=== PATIENT | male | born 2000 | race Hispanic/Latino ===

== ENCOUNTER 2022-07-05 13:21 | Observation (INO) | payer OTHER ==
[~2022-07-05] VITALS: Ht 172.7 cm; Wt 73.9 kg
[2022-07-05 14:00] LABS: BASOPHILS % (AUTO) 0.3 % (0.0-5.0); EOSINOPHILS % (AUTO) 0.3 % (0.0-8.0); HEMATOCRIT 42.1 % (42-54); LYMPHOCYTES % (AUTO) 9.3 % (21.0-51.0); MEAN CORPUSCULAR HEMOGLOBIN 26.9 pg (27.0-33.0); MEAN CORPUSCULAR HGB CONC 33.7 g/dL (32.0-36.0); MEAN CORPUSCULAR VOLUME 79.7 fL (80-100); MONOCYTES % (AUTO) 8.9 % (3.0-13.0); NEUTROPHILS % (AUTO) 80.7 % (40.0-77.0); PLATELET COUNT (AUTO) 226 K/uL (130-400); RED BLOOD CELL COUNT(AUTO) 5.28 MIL/uL (4.50-6.20); RED CELL DISTRIBUTION WIDTH 13.1 % (11.0-15.5); WHITE BLOOD COUNT (AUTO) 7.4 K/uL (4.8-10.8)
[2022-07-05 14:11] LABS: CREATININE 1.1 mg/dL (0.5-1.5); POTASSIUM 3.9 mmol/L (3.5-5.1)
[2022-07-05 14:12] LABS: INR 0.94 (0.85-1.15); PROTHROMBIN TIME 10.3 SEC (9.6-11.6)
[2022-07-05 14:13] LABS: PARTIAL THROMBOPLASTIN TIME 30.5 SEC (26.3-35.5)
[2022-07-05 14:17] LABS: ALBUMIN 4.4 g/dL (3.5-5.0); APPEARANCE,URINE CLEAR (CLEAR); BILIRUBIN,URINE NEGATIVE (NEGATIVE); COLOR,URINE COLORLESS (YELLOW); GLUCOSE, URINE (UA) NEGATIVE (NEGATIVE); KETONES,URINE NEGATIVE (NEGATIVE); LEUKOCYTE ESTERASE ,URINE NEGATIVE Leu/uL (NEGATIVE); NITRATE,URINE NEGATIVE (NEGATIVE); OCCULT BLOOD,URINE NEGATIVE (NEGATIVE); PROTEIN,URINE NEGATIVE (NEGATIVE); UROBILINOGEN,URINE 0.2 mg/dL (0.2-1.0)
[2022-07-05] MEDS ORDERED: ONDANSETRON 4MG INJ IVP ONE (14:30)
[2022-07-05] MEDS ORDERED: MORPHINE 2 MG SYG IVP ONE (14:30)
[2022-07-05] MEDS ORDERED: 0.9%NACL 1000ML 1,000 ML IV SCH (14:30)
[2022-07-05] MEDS ORDERED: ONDANSETRON 4MG INJ IVP PRN (15:30)
[2022-07-05] MEDS ORDERED: ACETAMINOPHEN 500 MG TABLET PO PRN (16:00)
[2022-07-05 16:15] LABS: AMPHET/METH SCREEN,URINE NEGATIVE (NEGATIVE); BARBITURATE SCREEN, URINE NEGATIVE (NEGATIVE); BENZODIAZEPINES SCREEN,URINE NEGATIVE (NEGATIVE); CANNABINOID SCREEN,URINE NEGATIVE (NEGATIVE); COCAINE SCREEN,URINE NEGATIVE (NEGATIVE); OPIATE SCREEN,URINE NEGATIVE (NEGATIVE); PHENCYCLIDINE SCREEN,URINE NEGATIVE (NEGATIVE)
[2022-07-05] MEDS ORDERED: PEG 3350/NA SULF,BICARB,CL/KCL 4000 ML SOLN PO ONE (16:30)
[2022-07-05] MEDS: ZOSYN 3.375GM +NS 50ML IV SCH ×2 (16:34→22:41)
[2022-07-05] MEDS: LACTATED RINGERS 1000ML 1,000 ML IV SCH (16:34)
[2022-07-05] MEDS: PANTOPRAZOLE 40 MG/VIAL IVP SCH (16:34)
[2022-07-05 20:05] LABS: HEMATOCRIT 40.5 % (42-54)
[2022-07-05 20:28] LABS: CRP QUANTITATIVE 24.4 mg/L (0.00-9.0)
[2022-07-05 23:04] VITALS: BP 114/69
[2022-07-06] VITALS (20 sets, daily range): BP systolic 95–124; BP diastolic 40–82
[2022-07-06 00:28] LABS: POTASSIUM 3.8 mmol/L (3.5-5.1)
[2022-07-06] MEDS: LACTATED RINGERS 1000ML 1,000 ML IV SCH ×3 (00:31→20:29)
[2022-07-06] MEDS: ZOSYN 3.375GM +NS 50ML IV SCH ×3 (05:45→22:49)
[2022-07-06 06:24] LABS: HEMATOCRIT 36.9 % (42-54)
[2022-07-06] MEDS ORDERED: PROPOFOL 10 MG/ML 20ML VIAL IV ONE ×2 (08:07→08:21)
[2022-07-06] MEDS ORDERED: LIDOCAINE PF 100MG/5ML (2%) SYRINGE 5ML ONE (08:07)
[2022-07-06] MEDS ORDERED: FENTANYL CITRATE PF 50 MCG/1 ML 2ML VIAL ONE (08:21)
[2022-07-06] MEDS: Vitamin B Complex/Vit C/Folic Acid PO SCH (09:31)
[2022-07-06] MEDS: PANTOPRAZOLE 40 MG/VIAL IVP SCH (15:09)
[2022-07-06] MEDS: DOCUSATE SODIUM 100 MG CAP PO SCH (20:29)
[2022-07-07 03:58] VITALS: BP 110/56
[2022-07-07 05:28] LABS: BASOPHILS % (AUTO) 0.2 % (0.0-5.0); EOSINOPHILS % (AUTO) 2.5 % (0.0-8.0); HEMATOCRIT 36.3 % (42-54); LYMPHOCYTES % (AUTO) 33.7 % (21.0-51.0); MEAN CORPUSCULAR HEMOGLOBIN 26.7 pg (27.0-33.0); MEAN CORPUSCULAR HGB CONC 33.1 g/dL (32.0-36.0); MEAN CORPUSCULAR VOLUME 80.7 fL (80-100); MONOCYTES % (AUTO) 12.1 % (3.0-13.0); PLATELET COUNT (AUTO) 194 K/uL (130-400); RED CELL DISTRIBUTION WIDTH 13.1 % (11.0-15.5); WHITE BLOOD COUNT (AUTO) 5.6 K/uL (4.8-10.8)
[2022-07-07] MEDS: ZOSYN 3.375GM +NS 50ML IV SCH ×2 (05:49→15:43)
[2022-07-07 06:00] LABS: ALBUMIN 3.4 g/dL (3.5-5.0); CREATININE 1.1 mg/dL (0.5-1.5); CRP QUANTITATIVE 16.5 mg/L (0.00-9.0); POTASSIUM 3.7 mmol/L (3.5-5.1); TOTAL PROTEIN, SERUM 6.4 g/dL (6.0-8.3)
[2022-07-07 06:43] LABS: ERYTHROCYTE SEDIMENTATION RATE 7 MM/HR (0-15)
[2022-07-07 08:00] VITALS: BP 92/57
[2022-07-07] MEDS: LACTATED RINGERS 1000ML 1,000 ML IV SCH (09:00)
[2022-07-07] MEDS: DOCUSATE SODIUM 100 MG CAP PO SCH (09:01)
[2022-07-07] MEDS: Vitamin B Complex/Vit C/Folic Acid PO SCH (09:01)
[2022-07-07 12:00] VITALS: BP 90/51
[2022-07-07] MEDS: PANTOPRAZOLE 40 MG/VIAL IVP SCH (15:43)
[2022-07-07 16:00] VITALS: BP 114/75
[2022-07-07] MEDS ORDERED: CEFU250T87 PO (16:13)
== END 2022-07-07 17:00 | disposition home or self-care (01) ==
LOC: EDH 13:21 → OBSVTOIN 15:23 → INTOOBSV 15:23 → EDHIP 15:23 → 4DH 20:44
PROVIDERS: ADMIT Internal Medicine; ATTEND Internal Medicine
DX: K92.1 Melena (principal); I95.1 Orthostatic hypotension; D62 Acute posthemorrhagic anemia; K29.70 Gastritis, unspecified, without bleeding; K64.1 Second degree hemorrhoids; J93.9 Pneumothorax, unspecified; Z79.899 Other long term (current) drug therapy; Z98.890 Other specified postprocedural states
CPT/HCPCS: 96361 ×4; 96365; 96366 ×5; 99285; 83735 ×2; 80053 ×2; 80305; 85025 ×2; 85610; 85730; 85651 ×2; 85014 ×3; 85018 ×3; 86850; 86900; 86901; 87040 ×2; 87804 ×2; 86140 ×2; 82270; 81003; 36415 ×3; 87635; 71045; 74176; 84145 ×2; 80048; 43239; 45378; G0378 ×48; J7120; J2543 ×7; C9113 ×3; J3010; J2001; J2704 ×2; A4620; A4215; A4223; A4657; A7002; A4222; A4216